=== PATIENT | female | born 1995 | race Caucasian/White ===

== ENCOUNTER → 2021-07-01 15:46 | Outpatient (BNVA) | payer OTHER, SELFPAY | PROVIDERS: Family Provider Pediatrics Adolescent Medicine; Visit Provider Obstetrics & Gynecology | DX: O26.859 Spotting complicating pregnancy, unspecified trimester (principal) | CPT/HCPCS: 84702; 85025; 86850; 86900 ==

== ENCOUNTER → 2021-07-29 11:05 | Outpatient (BNVA) | payer OTHER, SELFPAY | PROVIDERS: Family Provider Pediatrics Adolescent Medicine; Visit Provider Obstetrics & Gynecology | DX: Z34.01 Encounter for supervision of normal first pregnancy, first trimester (principal) | CPT/HCPCS: 80307; 84315; 84439; 84443; 84481; 85027; 86592; 86762; 86803; 87086; 87340 ==

== ENCOUNTER → 2021-08-05 12:17 | Outpatient (BNVA) | payer OTHER, SELFPAY | PROVIDERS: Family Provider Pediatrics Adolescent Medicine; Visit Provider Obstetrics & Gynecology | DX: Z34.01 Encounter for supervision of normal first pregnancy, first trimester (principal) | CPT/HCPCS: 84315; 87491; 87591; 88175 ==

== ENCOUNTER → 2021-09-09 16:00 | Outpatient (BNVA) | payer OTHER, SELFPAY | PROVIDERS: Family Provider Pediatrics Adolescent Medicine; Visit Provider Nurse Practitioner Women's Health | DX: O99.280 Endocrine, nutritional and metabolic diseases complicating pregnancy, unspecified trimester (principal); E03.9 Hypothyroidism, unspecified; Z3A.00 Weeks of gestation of pregnancy not specified | CPT/HCPCS: 84315; 84443 ==

== ENCOUNTER → 2021-12-09 12:58 | Outpatient (BNVA) | payer OTHER, SELFPAY | PROVIDERS: Family Provider Pediatrics Adolescent Medicine; Visit Provider Obstetrics & Gynecology | DX: Z34.90 Encounter for supervision of normal pregnancy, unspecified, unspecified trimester (principal) | CPT/HCPCS: 82950; 84315; 84443; 85027 ==

== ENCOUNTER → 2022-01-28 08:37 | Outpatient (BNVA) | payer OTHER, SELFPAY | PROVIDERS: Family Provider Pediatrics Adolescent Medicine; Visit Provider Obstetrics & Gynecology | DX: Z34.90 Encounter for supervision of normal pregnancy, unspecified, unspecified trimester (principal) | CPT/HCPCS: 84315; 87081 ==

== ENCOUNTER 2022-02-02 07:22 | Outpatient (CLI) | payer OTHER, SELFPAY ==
--- NOTE | 2022-02-02 07:15 | US_ITS ---
WS: [id number] LIMITED OBSTETRICAL ULTRASOUND HISTORY: Z34.90 - Encounter for supervision of normal , evaluate growth. COMPARISON: 07/02/2021, 11/04/2021 Presentation: Cephalic. Cervix: 5.3 centimeters Placenta: Posterior and fundal. Late grade 2. measurements: BPD = 8.7 cm = 35w0d HC = 32.5 cm = 36w6d AC = 32.3 cm = 36w1d FL = 7.3 cm = 37w1d Amniotic fluid visually is normal. EFW: 2922 g; 55 %. AGA by ultrasound: 36w4d NAILA by ultrasound: 02/26/2022 US/[place] [id number] IMPRESSION: 1. Single intrauterine gestation of 36 weeks 4 days with an EDC of 02/26/2022. 2. As compared to the first trimester ultrasound there has been appropriate in terval growth. No growth asymmetry identified. 3. Posterior placenta, late grade 2.
== END 2022-02-02 07:23 | disposition home or self-care (01) ==
LOC: RAD 07:29
PROVIDERS: Visit Provider Obstetrics & Gynecology
DX: Z34.90 Encounter for supervision of normal pregnancy, unspecified, unspecified trimester (principal)
CPT/HCPCS: 76816; 84315

== ENCOUNTER 2022-02-17 06:21 | Inpatient (IN) | payer OTHER, SELFPAY ==
[2022-02-16] VITALS (19 sets, daily range): BP systolic 107–133; BP diastolic 60–80; PULSE 56–113; RESP 16; TEMP 36.7; O2SAT 93–98; BMI 30.2
[2022-02-16] MEDS: dextrose 5%-lactated ringers 1,000 ML 999 ML IV (20:20)
[2022-02-16 20:23] LABS: Basophils % 0.3 %; Eosinophils # 0.1 10^3/uL (0.0-0.8); Eosinophils % 1.2 %; Hematocrit 38.7 % (37.0-47.0); Hemoglobin 13.6 g/dL (11.5-15.3); Lymphocytes # 2.2 10^3/uL (0.8-4.8); Lymphocytes % 20.3 %; Mean Corpuscular HGB Conc 35.1 g/dL (30.0-36.0); Mean Corpuscular Hemoglobin 32.5 pg (28.0-34.0); Mean Corpuscular Volume 92.4 fl (81-99); Mean Platelet Volume 10.1 fL (7.4-10.4); Monocytes # 0.8 10^3/uL (0.2-0.9); Monocytes % 7.4 %; Neutrophils # 7.48 10^3/uL (1.8-7.7); Neutrophils % 70.5 %; Nucleated Red Blood Cells % 0 %; Platelet Count 259 10^3/cmm (130-400); Red Blood Count 4.19 10^6/uL (4.1-5.3); Red Cell Distribution Width 12.1 % (12.1-15.1); White Blood Count 10.6 10^3/uL (4.0-10.0)
[2022-02-16] MEDS: miSOPROStol 100 mcg tablet 25 MCG VAGINAL (22:00)
[2022-02-17] VITALS (72 sets, daily range): BP systolic 101–187; BP diastolic 52–154; PULSE 50–96; RESP 16–17; TEMP 36.5–36.7; O2SAT 90–100
[2022-02-17] MEDS: miSOPROStol 100 mcg tablet 25 MCG VAGINAL (02:18)
--- NOTE | 2022-02-17 03:41 | PM.OPHPUD ---
Labor & Delivery H&P Update Date of Procedure: February 17, 2022 Date H&P Performed: 02/16/22 H&P update information: I have reviewed H&P completed within last 30 days, I have examined patient prior to procedure, No changes to prior documentation and H&P is in [facility] EMR on date indicated Admission Diagnosis:
[2022-02-17] MEDS: lactated ringers 1,000 ML 999 ML IV (07:48)
--- NOTE | 2022-02-17 08:24 | ANES.PREANE2 ---
Pre-Anesthetic Assessment Height/Weight: Height 1.7 m Weight 87.543 kg Temp Pulse Resp BP Pulse Ox 98.0 F 60 16 145/86 100 02/17/22 06:17 02/17/22 08:21 02/17/22 01:00 02/17/22 08:21 02/17/22 08:01 Familial anesthetic complications: None Was Beta Magali taken within 24 hours: N/A Was Clonidine taken within 24 hours: N/A Social No alcohol and No tobacco Exam alert, oriented x 3, clear to auscultation bilaterally and regular rate & rhythm Airway Submandibular: within normal limits Cervical ROM: within normal limits Mallampati: Class II Dentition: full Metabolic Thyroid Disease Anesthetic Plan ASA status: 2 Anesthesia: Regional (specify below) (Labor epidural) Medications/Allergies Home Medications Medication Instructions Recorded Confirmed Last Taken Type prenat.vits,cornell,[id number] 1 tab PO DAILY 07/08/21 02/16/22 02/16/22 History levothyroxine 25 mcg capsule 25 mcg PO DAILY #70 cap 12/16/21 02/16/22 02/16/22 Rx Allergies Allergy/AdvReac Type Severity Reaction Status Date / Time No Known Allergies Allergy Verified 02/16/22 20:28 Current Medications Generic Name Dose Route Start Last Admin Trade Name Freq PRN Reason Stop Dose Admin Dextrose/Lactated Ringer's 1,000 mls @ 125 mls/hr 02/16/22 19:45 02/16/22 20:50 Dextrose 5%-Lactated Ringers IV 125 mls/hr .Q8H PRN Infusion per label comments Ropivacaine 200 mg in 100 mls @ 13 mls/hr 02/17/22 06:30 02/17/22 07:48 Naropin Premix EPIDURAL 13 mls/hr .[id number] DOUGLAS Administration Lactated Ringer's 1,000 mls @ 999 mls/hr 02/17/22 06:16 02/17/22 07:48 Lactated Ringers IV 999 mls/hr .Q1H1M PRN Administration See label comments [facility] Medical History Acne Has had problems with acne 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 Dr. Herndon then continued prescription of this. She discontinued medication in February 2021 when she was trying to get No pertinent past medical history Denies diabetes, asthma, hypertension, seizures, DVT/PE PCP: None Surgical History Hx of wisdom tooth extraction (~2019) Family History Grandfather Hypertension Maternal Grandmother Stroke Great maternal Mother Thyroid disease Family/Other Breast cancer maternal great grandmother, diagnosed in her 90s Denies family history of Colon cancer Ovarian cancer Diabetes Heart disease Uterine cancer Female Reproductive History : 1 Data Anesthesia : 02/16/22 20:05 Short CBC 02/16/22 Range/Units 20:05 WBC 10.6 H (4.0-10.0) 10^3/uL Hgb 13.6 (11.5-15.3) g/dL Hct 38.7 (37.0-47.0) % MCV 92.4 (81-99) fl Plt Count 259 (130-400) 10^3/cmm Neut % (Auto) 70.5 % Neut # (Auto) 7.48 (1.8-7.7) 10^3/uL Cardiac Studies: No Data to Display
--- NOTE | 2022-02-17 08:28 | ANES.PROC ---
Anesthesia Procedures Procedure/Date: 02/17/22 Epidural: Time Out Performed: Yes Consents Signed: Procedure Consent Consent: requested by attending/covering physician, from patient and risks and benefits reviewed Lumbar Level: L3-L4 Epidural position: sitting Epidural procedure: sterile prep of area, 1% lidocaine to numb the area, 18 g needle, neg for paresthesia, test dose given, 1.5% xylocaine 1:200k epi, placed PCEA, no systemic response, sterile dressing applied and 0.2% Ropiavacaine @ mls/hr (13) Additional Comments: OLESYA at 4cm, cath to 9cm, bolused 5mls of 0.25% bup
--- NOTE | 2022-02-17 09:08 | PM.MISC ---
Miscellaneous Note Purpose of Documentation: Epidural replacement Note: OB nurse called b/c epidural not working, no numbness, epidural replaced with OLESYA at 4cm, cath at 9cm, bolused 5mls of 0.25% bup
--- NOTE | 2022-02-17 13:44 | P.PCNOB_ITS ---
Delivery Note: Date of delivery: February 17, 2022 - PRE-DELIVERY DIAGNOSIS: 26-year-old 1 para 0 at 39 weeks and 1 day gestation GBS negative Elective induction Hypothyroidism on medication Rubella nonimmune POST-DELIVERY DIAGNOSIS: Vaginal delivery on 02/17/2022 PROCEDURE: Vaginal delivery on 02/17/2022 ANESTHESIA: Epidural anesthesia DELIVERING PHYSICIAN: Nain Stover FACOG PRE-DELIVERY COURSE: Ms. Carlos is a 26-year-old 1 para 0 at 39 weeks and 0 days who presented to labor and delivery at 7:30 PM on 02/16/2022 for elective induction of labor. Medical history was significant for hypothyroidism well controlled with medication and rubella nonimmune. She was GBS negative. When she presente d to labor and delivery pelvic exam showed that she was 2 cm 50% and -3 station with no contractions and overall category 1 tracing. Induction was started with Cytotec and her first Cytotec was placed at 10 PM. After 4 hours she had occasional contractions and had made no cervical change and had a second Cytotec placed at 2 AM.. She had spontaneous rupture of membranes at 6:09 AM with clear fluid and with the started to become more uncomfortable and had regular contractions every 2 to 3 minutes. An epidural was placed. The first epidural did not provide relief and she had a second epidural placed during this time she had made cervical change and was 5 cm 90% and -2 station. After her second epidural she was comfortable and was anterior lip at 10 AM and fully dilated at 10:30 AM. She was allowed to labor down because she was numb and she was set up in lithotomy position ready to push at 11:56 AM and was +3 station at this time. tracing was overall category 1 with occasional variable and late decelerations which responded to positional changes. DELIVERY NOTE: She was set up in lithotomy position and was pushing effectively. She was noted to be +3 station and continued pushing well. The head delivered in SOUTH position, nuchal cord x1 was present and this was reduced without any difficulty. The shoulders and rest of the body followed with her next push. The baby's mouth and nose were suctioned and the baby was placed on the mother's belly. Once cord pulsations stopped the cord was clamped and cut. The placenta delivered spontaneously intact with membranes and was discarded. The fundus was noted to be firm and well contracted. The vagina and cervix were inspected and no cervical or sulcal lacerations were noted. The perineum was noted to be intact except for a first-degree vaginal tear which was repaired with 3-0 Vicryl in a continuous interlocking fashion. Baby girl, Yazan born at 12:20 PM on 02/17/2022 with 8/9, weighing 6 pounds 13 ounces, 3080 g, 21-1/2 inches long. Placenta was delivered spontaneously intact with membranes at 12:23 PM. Cotyledons were intact , centrally inserted umbilical cord with 3 vessels noted. Estimated blood loss -250 mL. Complications-none, both baby and mother were left to recover in a stable condition This documentation was created by [employer] product support rep software (known for inherent product support rep error). Every effort was made to assure accuracy of product support rep. Any obvious errors or omissions should be clarified with the author of the document. History History History 1 Term 1 Miscarriages/Ectopic 0 0 Living Children 1 Other History: 1---> 02/17/2022----> vaginal delivery at 39 weeks on 02/17/[address] Stover at [facility]. Baby girl, Yazan weighing 6 pounds 13 ounces, first-degree perineal tear. No complications Coding Level of Care Code Acute Mannequin Decorator for Eleazarg Tatianna
--- NOTE | 2022-02-17 15:23 | ANE.PACU2 ---
Inpatient post-anesthesia follow up: Airway intact: Yes Vital signs: Temperature 98.0 F Pulse Rate 74 Respiratory Rate 17 Blood Pressure 121/73 Pulse Oximetry 100 Oxygen Delivery Me thod Room Air Oxygen Flow Rate Fraction of Inspir ed Oxygen Hydration adequate: Yes Nausea and vomiting: No Pain level: 2 Mental status: Baseline
[2022-02-17] MEDS: lanolin oint 7 gm 1 APPLIC TOPICAL (15:49)
[2022-02-17] MEDS: ibuprofen 800 mg tablet PO ×2 (15:49→21:27)
[2022-02-17] MEDS: benzocaine-menthol 78 gm Canister 1 SPRAY TOPICAL (15:50)
[2022-02-17] MEDS: docusate sodium 100 mg Capsule PO (19:32)
--- NOTE | 2022-02-17 19:52 | PC.NURSE ---
patient was unable to void for greater than 6 hours, straight cath performed
[2022-02-18 00:37] LABS: Hematocrit 35.9 % (37.0-47.0); Hemoglobin 13.2 g/dL (11.5-15.3); Mean Corpuscular HGB Conc 36.8 g/dL (30.0-36.0); Mean Corpuscular Hemoglobin 33.2 pg (28.0-34.0); Mean Corpuscular Volume 90.2 fl (81-99); Mean Platelet Volume 10.2 fL (7.4-10.4); Platelet Count 217 10^3/cmm (130-400); Red Blood Count 3.98 10^6/uL (4.1-5.3); White Blood Count 15.1 10^3/uL (4.0-10.0)
[2022-02-18 03:46] VITALS: BP 109/70; PULSE 74
[2022-02-18] MEDS: docusate sodium 100 mg Capsule PO (09:32)
[2022-02-18] MEDS: ibuprofen 800 mg tablet PO (09:32)
[2022-02-18] MEDS: levothyroxine 25 mcg Tablet PO (09:33)
[2022-02-18] MEDS: prenatal vitamin Capsule 1 CAP PO (09:33)
[2022-02-18 09:35] VITALS: BP 127/71; PULSE 83; TEMP 36.1
--- NOTE | 2022-02-18 12:46 | PM.OBGYDC ---
Discharge Providers SOCIAL WELFARE ADMINISTRATOR Date of Admission: 02/17/22 06:21 Date of Discharge: 02/18/22 Attending Provider at Admission: Nain Fernandez MD Attending Provider at Discharge: Nain Fernandez MD PRE-DELIVERY DIAGNOSIS: 26-year-old 1 para 0 at 39 weeks and 1 day gestation GBS negative Elective induction Hypothyroidism on medication Rubella nonimmune POST-DELIVERY DIAGNOSIS: Vaginal delivery on 02/17/2022 PROCEDURE: Vaginal delivery on 02/17/2022 ANESTHESIA: Epidural anesthesia DELIVERING PHYSICIAN: Nain Stover FACOG PRE-DELIVERY COURSE: Ms. Carlos is a 26-year-old 1 para 0 at 39 weeks and 0 days who presented to labor and delivery at 7:30 PM on 02/16/2022 for elective induction of labor.? Medical history was significant for hypothyroidism well controlled with medication and rubella nonimmune.? She was GBS negative.? When she presented to labor and delivery pelvic exam showed that she was 2 cm 50% and -3 station with no contractions and overall category 1 tracing.? Induction was started with Cytotec and her first Cytotec was placed at 10 PM.? After 4 hours she had occasional contractions and had made no cervical change and had a second Cytotec placed at 2 AM..? She had spontaneous rupture of membranes at 6:09 AM with clear fluid and with the started to become more uncomfortable and had regular contractions every 2 to 3 minutes.? An epidural was placed.? The first epidural did not provide relief and she had a second epidural placed during this time she had made cervical change and was 5 cm 90% and -2 station.? After her second epidural she was comfortable and was anterior lip at 10 AM and fully dilated at 10:30 AM.? She was allowed to labor down because she was numb and she was set up in lithotomy position ready to push at 11:56 AM and was +3 station at this time.? tracing was overall category 1 with occasional variable and late decelerations which responded to positional changes. DELIVERY? NOTE: She was set up in lithotomy position and was pushing effectively. She was noted to be? +3 station and continued pushing well. The head delivered in SOUTH position, nuchal cord x1 was present and this was reduced without any difficulty. The shoulders and rest of the body followed with her next push. The baby's mouth and nose were suctioned and the baby was placed on the mother's belly.? Once cord pulsations stopped the cord was clamped and cut.? The placenta delivered spontaneously intact with membranes and was discarded. The fundus was noted to be firm and well contracted. The vagina and cervix were inspected and no cervical or sulcal lacerations were noted.? The perineum was noted to be intact except for a first-degree vaginal tear which was repaired with 3-0 Vicryl in a continuous interlocking fashion. Baby girl, Yazan born at 12:20 PM on 02/17/2022 with 8/9, weighing 6 pounds 13 ounces, 3080 g, 21-1/2 inches long. Placenta was delivered spontaneously intact with membranes at 12:23 PM.? Cotyledons were intact , centrally inserted umbilical cord with 3 vessels noted. Estimated blood loss -250 mL. Complications-none, both baby and mother were left to recover in a stable condition HOSPITAL COURSE: She underwent an uncomplicated vaginal delivery on 02/18/2022. She did well on day 0 and was ambulating well, tolerating regular diet, voiding freely, passing flatus. She was breast-feeding without difficulty and bonding well with her daughter. Pain was well-controlled with by mouth pain medication. She denied nausea, vomiting, fever, chills, shortness of breath, leg pain. She had moderate vaginal bleeding. On day # 1 she continued to do well with stable vital signs and stable hemoglobin at 13.2. She was discharged home on day 1 in a stable condition, as she desired early discharge. Warning signs for endometritis, mastitis, DVT/PE were reviewed with her. Post delivery activity restrictions were also reviewed with her at all her questions were answered to her satisfaction. Plans on using control pills for contraception EXAM AT DISCHARGE: Gen.: No acute distress Heart: S1-S2 heard, regular rate and rhythm Lungs: Clear to auscultation bilaterally Abdomen: Soft, fundus firm below umbilicus, Legs: No calf tenderness, trace bilateral pitting pedal edema. CONDITION AT DISCHARGE: Stable This documentation was created by [employer] frame feeder software (known for inherent frame feeder error). Every effort was made to assure accuracy of frame feeder. Any obvious errors or omissions should be clarified with the author of the document. Primary Care Provider: Nain Fernandez MD Reason for Visit Reason for Visit: IOL Information Peripartum Data: Delivery Method: Vaginal Physical Exam Urinary Catheter Management: [place] Latex: Cath Placed During This Visit: yes Urinary Catheter Date of Insertion: 02/17/22 Urinary Catheter Time of Insertion: 09:45 History History History 1 Term 1 Miscarriages/Ectopic 0 0 Living Children 1 Other History: 1---> 02/17/2022----> vaginal delivery at 39 weeks on 02/17/[address] Stover at [facility]. Baby girl, Yazan weighing 6 pounds 13 ounces, first-degree perineal tear. No complications Discharge Data Studies Completed and Pending Laboratory Results WBC 15.1 10^3/uL (4.0-10.0) H 02/18/22 00:28 RBC 3.98 10^6/uL (4.1-5.3) L 02/18/22 00:28 Hgb 13.2 g/dL (11.5-15.3) 02/18/22 00:28 Hct 35.9 % (37.0-47.0) L 02/18/22 00:28 MCV 90.2 fl (81-99) 02/18/22 00:28 MCH 33.2 pg (28.0-34.0) 02/18/22 00:28 MCHC 36.8 g/dL (30.0-36.0) H 02/18/22 00:28 RDW 12.0 % (12.1-15.1) L 02/18/22 00:28 Plt Count 217 10^3/cmm (130-400) 02/18/22 00:28 MPV 10.2 fL (7.4-10.4) 02/18/22 00:28 Neut % (Auto) 70.5 % 02/16/22 20:05 Lymph % (Auto) 20.3 % 02/16/22 20:05 Weld % (Auto) 7.4 % 02/16/22 20:05 Eos % (Auto) 1.2 % 02/16/22 20:05 Baso % (Auto) 0.3 % 02/16/22 20:05 Neut # (Auto) 7.48 10^3/uL (1.8-7.7) 02/16/22 20:05 Lymph # (Auto) 2.2 10^3/uL (0.8-4.8) 02/16/22 20:05 Weld # (Auto) 0.8 10^3/uL (0.2-0.9) 02/16/22 20:05 Eos # (Auto) 0.1 10^3/uL (0.0-0.8) 02/16/22 20:05 Baso # (Auto) 0.0 10^3/uL (0.0-0.1) 02/16/22 20:05 Nucleated RBC % (auto) 0 % 02/16/22 20:05 Nucleated RBCs # 0.0 /100WBC 02/16/22 20:05 Vitals Last Vital Signs Temp 97.0 F L 02/18/22 09:35 Pulse 83 02/18/22 09:35 Resp 17 02/17/22 14:17 BP 127/71 02/18/22 09:35 Pulse Ox 100 02/17/22 09:23 Discharge Plan Discharge Patient Disposition: Home Condition: Stable Prescriptions: New docusate sodium 100 mg Capsule 100 mg PO BID PRN (Reason: constipation) Qty: 30 0RF ibuprofen 800 mg tablet 800 mg PO Q8H Qty: 30 0RF Continued levothyroxine 25 mcg capsule 25 mcg PO DAILY Qty: 70 0RF prenat.vits,cornell,[id number]-[id number] Tablet 1 tab PO DAILY 0RF Discharge Orders: Discharge Order (Routine); Ordered 02/18/22 Ordered By: Nain Fernandez Referrals: Nain Fernandez MD [Primary Care Provider] - 04/01/22 8:00 am (6 week post-) Discharge Diet: Regular Discharge Activity: Limit activity as instructed Patient Instructions: Depression (GEN), Expression, Collection and Storage of Breast Milk (DC), Bleeding (DC), Preeclampsia and Eclampsia After Delivery (GEN), OB Discharge Report, OB Food/Drug Interaction Guide, OB Care at Home, Opioid Safety, OB Vaginal Deliveries - [facility] Activity Restrictions/Additional Instructions: No heavy lifting for 6 weeks, pelvic rest for 6 weeks Follow-up with Dr. Stover 6 weeks for visit Emergency room precautions reviewed. Discharge Attestations SOCIAL WELFARE ADMINISTRATOR Time Spent in Discharge Care*: greater than 30 min Coding Level of Care Code Acute Accident Report Clerk for Dhaval Campuzano
[2022-02-18] MEDS: measles,mumps,rubella pf Vial (w/diluent) 0.5 ML SUBCUT (13:03)
[2022-02-18 15:46] VITALS: BP 129/81; PULSE 71
[2022-02-18 17:15] VITALS: BP 131/80; PULSE 69; PULSE 78; RESP 16; TEMP 36.6; O2SAT 99
== END 2022-02-18 17:30 | disposition home or self-care (01) | DRG 807 ==
LOC: OPOB 06:22 → OBGYN 06:22
PROVIDERS: Admitting Provider Obstetrics & Gynecology; PCP Obstetrics & Gynecology; Visit Provider Obstetrics & Gynecology
DX: O76 Abnormality in fetal heart rate and rhythm complicating labor and delivery (principal); Z37.0 Single live birth; O70.0 First degree perineal laceration during delivery; O69.2XX0 Labor and delivery complicated by other cord entanglement, with compression, not applicable or unspecified; O99.284 Endocrine, nutritional and metabolic diseases complicating childbirth; Z3A.39 39 weeks gestation of pregnancy
CPT/HCPCS: 36415; 51702; 59025; 59409; 84315; 85025; 85027; 90707; 96372; J2795; J3490

== ENCOUNTER → 2022-04-01 10:03 | Outpatient (BNVA) | payer OTHER, SELFPAY | PROVIDERS: PCP Obstetrics & Gynecology; Visit Provider Obstetrics & Gynecology | DX: E03.9 Hypothyroidism, unspecified (principal) | CPT/HCPCS: 84443 ==

== ENCOUNTER → 2023-05-20 14:57 | Outpatient (BNVA) | payer OTHER, SELFPAY | PROVIDERS: Visit Provider Family Medicine Adult Medicine | DX: E03.9 Hypothyroidism, unspecified (principal); Z30.014 Encounter for initial prescription of intrauterine contraceptive device; F32.A Depression, unspecified | CPT/HCPCS: 84443 ==

== ENCOUNTER → 2024-10-24 15:32 | Outpatient (BNVA) | payer OTHER, SELFPAY | PROVIDERS: PCP Family Medicine Adult Medicine; Visit Provider Family Medicine | DX: E03.9 Hypothyroidism, unspecified (principal); K59.00 Constipation, unspecified | CPT/HCPCS: 80053; 83540; 84439; 84443; 85025 ==

== ENCOUNTER → 2024-12-22 07:45 | Outpatient (BNVA) | payer OTHER, SELFPAY | PROVIDERS: PCP Family Medicine; Visit Provider Family Medicine | DX: R19.5 Other fecal abnormalities (principal) | CPT/HCPCS: 82274; 82705; 83630; 87338 ==

== ENCOUNTER → 2025-05-31 08:14 | Outpatient (BNVA) | payer BC, SELFPAY | PROVIDERS: PCP Family Medicine; Visit Provider Nurse Practitioner | DX: R39.9 Unspecified symptoms and signs involving the genitourinary system (principal) | CPT/HCPCS: 81000 ==

== ENCOUNTER → 2025-06-21 08:42 | Outpatient (BNVA) | payer BC, SELFPAY | PROVIDERS: PCP Family Medicine; Visit Provider Family Medicine Adult Medicine | DX: R39.9 Unspecified symptoms and signs involving the genitourinary system (principal) | CPT/HCPCS: 81000 ==